=== PATIENT | male | born 1980 | race Two or more races ===

== ENCOUNTER 2017-07-03 13:31 | Emergency (ER) | payer SELFPAY ==
[2017-07-03 13:37] VITALS: RESP 18
[2017-07-03] MEDS ORDERED: Alum-Mag Hydrox-Simethicone Susp (30 mL) PO STA (15:02)
--- NOTE | 2017-07-03 15:05 | C.PDOC ---
History Of Present Illness Patient is a 37 y/o male who presents to the ED with a complaint of loose, watery stools 4-5 times per day for the last 2 days since eating a chicken dish. Patient admits to taking Immodium once yesterday with mild improvement. Denies any persistent abdominal pain, but notes experiencing mild, crampy abdominal pain subsequent to eating meals relieved by usually 3 watery stools. Patient has no other physical complaints at this time. Time Seen by Provider: 07/03/17 14:53 Chief Complaint (Nursing): Abdominal Pain History Per: Patient History/Exam Limitations: no limitations Onset/Duration Of Symptoms: Days (2) Current Symptoms Are (Timing): Still Present Context: Food (chicken dish) Radiation Of Pain To:: None Quality Of Discomfort: Cramping Associated Symptoms: Diarrhea (watery and loose stools) Alleviating Factors: OTC Meds (mild relief with immodium) Recent travel outside of the [place]: No Past Medical History Reviewed: Historical Data, Nursing Documentation, Vital Signs Vital Signs: Last Vital Signs Temp 98.5 F 07/03/17 15:15 Pulse 90 07/03/17 15:15 Resp 18 07/03/17 15:15 BP 121/81 07/03/17 15:15 Pulse Ox 97 07/03/17 15:15 - Medical History PMH: No Chronic Diseases Surgical History: No Surg Hx Family History: States: No Known Family Hx - Social History Hx Tobacco Use: No Hx Alcohol Use: No Hx Substance Use: No - Immunization History Hx Tetanus Toxoid Vaccination: No Hx Influenza Vaccination: No Hx Pneumococcal Vaccination: No Review Of Systems Gastrointestinal: Positive for: Abdominal Pain, Diarrhea Physical Exam - Physical Exam Appears: Well, Non-toxic, No Acute Distress Skin: Normal Color, Warm, Dry Head: Atraumatic, Normacephalic Oral Mucosa: Moist (oropharynx) Chest: Symmetrical Cardiovascular: Rhythm Regular, No Murmur Respiratory: Normal Breath Sounds, No Rales, No Rhonchi, No Wheezing Gastrointestinal/Abdominal: Bowel Sounds (normal m), Soft, No Tenderness Neurological/Psych: Oriented x3, Normal Speech, Normal Cognition ED Course And Treatment O2 Sat by Pulse Oximetry: 98 Progress Note: Pepcid, motrin, and maalox administered. Medical Decision Making Medical Decision Making: viral vs food born diarrhea, x 5/day diet and symptomatic treatment educated. Disposition Doctor Will See Patient In The: Office Counseled Patient/Family Regarding: Studies Performed, Diagnosis - Disposition Referrals: [facility] [Outside] Disposition: HOME/ ROUTINE Disposition Time: 15:05 Condition: GOOD Additional Instructions: Pepcid 20 mg en la noche- baja el acides del estomago Maalox 30 cc yessica cucharada 5 veces al yolette- carla la molesta del abdomen y ayuda con la freuquencia de la diarrhea Motrin/Advil 400-600 mg cada 6 horas cullen necessario para molestia del abdomen Dieta de BRAT: Bananas/[place], White Rice/arroz jane, Apples/Applesauce, [place] Caldo de shannon Sigue en la Clin[facility]amiliar (etta) cullen necessario Instructions: Diarrhea in Adolescents and Adults Forms: [facility] (Ivorian), Work Excuse Print Language: [place] - Clinical Impression Clinical Impression: Diarrhea - Scribe Statement The provider has reviewed the documentation as recorded by the Scribe Ying Howe All medical record entries made by the Scribe were at my direction and personally dictated by me. I have reviewed the chart and agree that the record accurately reflects my personal performance of the history, physical exam, medical decision making, and the department course for this patient. I have also personally directed, reviewed, and agree with the discharge instructions and disposition.
[2017-07-03] MEDS ORDERED: Alum-Mag Hydrox-Simethicone Susp (30 mL) ONE (15:09)
[2017-07-03 15:22] VITALS: BP 121/81; PULSE 90; TEMP 98.5
[2017-07-03 18:36] VITALS: O2SAT 98
== END 2017-07-03 15:15 | disposition home or self-care (01) ==
LOC: C.ER 13:31
DX: R19.7 Diarrhea, unspecified (principal)